=== PATIENT | female | born 1950 | race Two or more races ===

== ENCOUNTER 2018-04-26 07:50 | Outpatient (CLI) | payer OTHER ==
[~2018-04-26 07:50] MED LIST: ATENOLOL100 MG; CATAFLAM50 MG PO
== END 2018-04-26 07:59 | disposition home or self-care (01) ==
LOC: TOM 07:50
DX: K56.50 Intestinal adhesions [bands], unspecified as to partial versus complete obstruction (principal); R10.32 Left lower quadrant pain; K63.5 Polyp of colon

== ENCOUNTER 2021-09-24 13:46 | Emergency (ER) | payer OTHER ==
[~2021-09-24] VITALS: Ht 154.9 cm; Wt 80.7 kg
[2021-09-24] MEDS ORDERED: GRALISE600 MG PO (14:10)
[2021-09-24] MEDS ORDERED: CLONAZEPAM0.5 MG PO (14:11)
[2021-09-24] MEDS ORDERED: COZAAR100 MG PO (14:11)
[2021-09-24] MEDS ORDERED: SIMVASTATIN5 MG PO (14:11)
[2021-09-24] MEDS ORDERED: TOPROL XL100 M1 PO (14:12)
[2021-09-24] MEDS ORDERED: CHILDREN'S ASPI81 MG PO (14:12)
[2021-09-24] MEDS ORDERED: AMLODIPINE-OLM1 EAC3 PO (14:12)
[2021-09-24] MEDS ORDERED: NAPROXEN500 MG PO (17:42)
== END 2021-09-24 18:05 | disposition home or self-care (01) ==
LOC: ER 13:46
DX: M13.89 Other specified arthritis, multiple sites (principal)

== ENCOUNTER 2023-02-09 10:28 | Outpatient (CLI) | payer OTHER ==
[~2023-02-09 10:28] MED LIST changes: +AMLODIPINE-OLM1 EAC3 PO; +CHILDREN'S ASPI81 MG PO; +CLONAZEPAM0.5 MG PO; +COZAAR100 MG PO; +GRALISE600 MG PO; +NAPROXEN500 MG PO; +SIMVASTATIN5 MG PO; +TOPROL XL100 M1 PO
== END 2023-02-09 10:37 | disposition home or self-care (01) ==
LOC: TOM 10:28
PROVIDERS: ATTEND Internal Medicine Gastroenterology
DX: Z53.8 Procedure and treatment not carried out for other reasons (principal)

== ENCOUNTER 2024-07-13 12:13 | Emergency (ER) | payer OTHER ==
[~2024-07-13] VITALS: Ht 167.6 cm; Wt 76.7 kg
[2024-07-13] MEDS ORDERED: NAMENDA1 EACH (13:14)
[2024-07-13 15:03] LABS: HEMATOCRIT 38.2 % (36.0-45.00); HEMOGLOBIN 13.1 g/dL (12.0-15.00); MEAN CELL VOLUME 84.4 fL (80.00-100.00); MEAN CORPUSCULAR HEMOGLOBIN 28.9 pg (27.00-32.0); MEAN CORPUSCULAR HGB CONC 34.3 g/dl (32.0-36.0); PLATELET COUNT 170 K/uL (150-450); RED BLOOD COUNT 4.52 M/uL (4.00-6.00); RED CELL DISTRIBUTION WIDTH 15.1 % (11.5-14.5)
[2024-07-13 15:19] LABS: CALCIUM 9.6 mg/dL (8.5-10.1); CREATININE SERUM 0.85 mg/dL (0.55-1.02); GFR 65.03; POTASSIUM 4.12 mEq/L (3.5-5.1)
[2024-07-13 15:27] LABS: PH,URINE 5.5 (5.0-8.0); URINE APPEARANCE Clear; URINE BILIRRUBIN Negative (NEGATIVE); URINE BLOOD Negative; URINE COLOR Yellow; URINE GLUCOSE Negative (NEGATIVE); URINE KETONE Trace (NEGATIVE); URINE LEUKOCYTE Negative; URINE NITRATE Negative
[2024-07-13 15:29] LABS: URINE BACTERIA 96.9 uL (0.0-1933)
[2024-07-13 15:30] LABS: URINE CAST 0.45 uL (0.0-1.40); URINE PROTEIN 100 (NEGATIVE)
[2024-07-13] MEDS ORDERED: KETOROLAC TROMETHAMINE 30 MG VIAL IM STA (19:40)
== END 2024-07-13 19:57 | disposition home or self-care (01) ==
LOC: ER 12:13
PROVIDERS: General Practice
DX: R10.9 Unspecified abdominal pain (principal); M79.606 Pain in leg, unspecified; Z91.013 Allergy to seafood
CPT/HCPCS: 36415; 74177; 96372; 99284; J1885; Q9965

== ENCOUNTER 2025-04-23 07:11 | Outpatient (CLI) | payer OTHER ==
[~2025-04-23 07:11] MED LIST changes: +NAMENDA1 EACH
== END 2025-04-23 07:18 | disposition home or self-care (01) ==
LOC: TOM 07:11
PROVIDERS: ATTEND Internal Medicine Gastroenterology
DX: R19.5 Other fecal abnormalities (principal); K56.50 Intestinal adhesions [bands], unspecified as to partial versus complete obstruction